=== PATIENT | male | born 1995 | race Two or more races ===

== ENCOUNTER 2019-04-24 15:54 | Emergency (ER) | payer SELFPAY ==
--- NOTE | 2019-04-24 16:00 | PDOC ---
History of Present Illness - General Chief Complaint: Injury Stated Complaint: RT 5TH FINGER PAIN Time Seen by Provider: 04/24/19 15:58 - History of Present Illness Initial Comments: 04/24/19 17:22 23 y/o M TamiW presents to the ER after injuring his right 5th digit in a basketball game. the ball was thrown and hit his finger while his palm was outstretched. He denies any other injury/ fall/trauma at the time of incident. He denies any bleeding, loss of sensation, numbness or tingling in the finger. Finger is painful and swollen but pain is 7/10 and non-radiating. Past History - Past Medical History Allergies/Adverse Reactions: Allergies Allergy/AdvReac Type Severity Reaction Status Date / Time adenosine Allergy Verified 04/24/19 15:56 Home Medications: Ambulatory Orders NK [No Known Home Medication] 04/24/19 Review of Systems - Review of Systems Constitutional: No: Chills, Fever HEENTM: No: Eye Pain, Blurred Vision Respiratory: No: Cough, Shortness of Breath Cardiac (ROS): No: Chest Pain, Lightheadedness ABD/GI: No: Nausea, Vomiting : No: Burning, Dysuria, Hematuria Musculoskeletal: Yes: Joint Swelling. No: Back Pain *Physical Exam - Physical Exam Comments: 04/24/19 16:27 PE: GENERAL: Awake, alert, and fully oriented, in no acute distress HEAD: No signs of trauma, normocephalic, atraumatic EYES: sclera anicteric, conjunctiva clear ENT: Auricles normal inspection, hearing grossly normal, nares patent, oropharynx clear without exudates. Moist mucosa NECK: Normal ROM, supple, no lymphadenopathy, JVD, or masses LUNGS: No distress, speaks full sentences, clear to auscultation bilaterally HEART: Regular rate and rhythm, normal S1 and S2, no murmurs, rubs or gallops, peripheral pulses normal and equal bilaterally. ABDOMEN: Soft, nontender, normoactive bowel sounds. No guarding, no rebound. No masses EXTREMITIES : 5th digit of right hand swollen and erythematous at the DIP joint. patient unable to flex and extend actively. minor flexion and extension passively is possible. pain with flexion and extension. NEUROLOGICAL: Cranial nerves II through XII grossly intact. Normal speech, normal gait, no focal sensorimotor deficits SKIN: Warm, Dry, normal turgor, no rashes or lesions noted Procedures - Joint Reduction Right Joint Reduction Site: right: Finger (5th digit) Pre-Procedure NV Exam: dorsal dislocation of 5th distal phalanx. 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 Patient offered motrin/tylenol for pain but declined. right finger x-ray to determine if there is fracture,dislocation or tendon rupture. 04/24/19 17:24 Finger X-ray dorsal dislocation of distal phalanx at dip joint of 5th right digit no fracture appreciated. Dislocation reduced post-reduction x-ray ordered. 04/24/19 17:40 post-reduction x-ray, joint reduced successfully patients finger placed in splint. Discharge - Discharge Information Problems reviewed: Yes Clinical Impression/Diagnosis: Dislocation closed, finger Qualifiers: Encounter type: initial encounter Qualified Code(s): S63.259A - Unspecified dislocation of unspecified finger, initial encounter Condition: Stable Disposition: HOME - Admission No - Follow up/Referral - Patient Discharge Instructions Patient Printed Discharge Instructions: DI for Finger Dislocation Additional Instructions: Return to the ER if -you develop fever or chills -increased swelling in your finger finger turns blue or you lose sensation in that finger Other Instructions. wear the splint for the next two weeks. You can take it off when showering. Avoid contact sports until the finger heals. - Post Discharge Activity
[2019-04-24 17:07] VITALS: BP 125/75; PULSE 78; TEMP 98; BMI 21.2
--- NOTE | 2019-04-24 17:36 | PDOC ---
Attending Attestation - Resident Resident Name: Kristopher Shaffer - ED Attending Attestation I have performed the following: I have examined & evaluated the patient, The case was reviewed & discussed with the resident, I agree w/resident's findings & plan - HPI HPI: 04/24/19 17:34 Patient jammed his right fifth finger and now has pain and swelling at the DIP joint. - Physicial Exam PE: 04/24/19 17:34 On examination, there is tenderness at the DIP joint of the right fifth finger associated with swelling and tenderness. The skin is intact. Range of motion is markedly reduced. - Medical Decision Making 04/24/19 17:35 X-ray of the right fifth finger shows a dorsal dislocation of the distal phalanx. Reduction procedure was performed with postreduction good alignment on clinical examination. Improve range of motion was noted. The finger was iced. Repeat x-ray of the right fifth finger shows good reduction of the dislocation. Impression: Dislocation of the right fifth DIP finger joint. Plan: Nonsteroidals, ice, dorsal finger splint placed.
== END 2019-04-24 17:50 | disposition home or self-care (01) ==
LOC: FER 15:54
PROC: 0RSWXZZ Reposition Right Finger Phalangeal Joint, External Approach (ICD-10-PCS; principal; 2019-04-24)
DX: S63.296A Dislocation of distal interphalangeal joint of right little finger, initial encounter (principal); S63.291A Dislocation of distal interphalangeal joint of left index finger, initial encounter; W21.05XA Struck by basketball, initial encounter; Y93.67 Activity, basketball; Y92.310 Basketball court as the place of occurrence of the external cause
CPT/HCPCS: 73140-TC-RT-FY; 99282-25